=== PATIENT | female | born 1935 | race Caucasian/White ===

== ENCOUNTER 2016-07-06 16:15 | Emergency (ER) | payer MEDICARE, BC ==
[~2016-07-06] VITALS: Ht 147.3 cm; Wt 61.0 kg
[~2016-07-06 16:15] MED LIST: ALLOPURINOL100 MG PO; AMITRIPTYLIN25 MG OR; ASPIRIN LOW DOS81 M2 PO; BABY ASPIRIN81 MG OR; BENAZEPRIL20 MG OR; CALCIUM500 MG/D OR; CYANOCOBALAM1000 MCG IJ; ESCITALOPRAM OX10 MG PO; FLEXERIL PO; GABAPENTIN300 MG PO; INDERAL 20MG TA20 MG PO; ISOSORB MONO30 MG PO; ISOSORB MONO60 M1 OR; ISOSORB MONO60 M1 PO; LASIX 40 MG40 MG/TAB; LASIX 40 MG40 MG/TAB PO; LEVAQUIN750 MG OR; LISINOPRIL10 MG PO; LORAZEPAM0.5 MG PO; METO50TA52 OR; NITROGLYCER0.4 MG SL; NORCO1 TA1 PO; PAROXETIN ER12.5 MG PO; PLAVIX75 MG PO; PRAMIPEXOLE0.125 M1 PO; RANEXA PO; ROBITUSS12 OR; SIMVASTATIN20 MG PO; TRIAM/HCTZ1 CAP OR; ULTRAM50 M1 PO; VENTOLIN HFA IN; ZITHROMAX250 MG PO; [UNRECOGNIZED DRUG - OTHER]; [UNRECOGNIZED DRUG - REMARK]; [UNRECOGNIZED DRUG - REMARK]; iron
[2016-07-06 17:13] LABS: HEMATOCRIT 33.3 % (37.0-47.0); HEMOGLOBIN 11.1 g/dl (12.0-16.0); IMMATURE GRANULOCYTES 0.2 % (0.0-1.0); MEAN CELL VOLUME 93.8 fL CALC (80.0-100.0); MEAN CORPUSCULAR HGB 31.3 pG CALC (26.0-32.0); MEAN CORPUSCULAR HGB CONC 33.3 g/L CALC (32.0-36.0); NEUT# 3.7 thou/uL (2.00-7.15); RED BLOOD COUNT 3.55 mill/uL (4.20-5.60); RED CELL DISTRI WIDTH 15.1 % (11.5-15.5)
[2016-07-06 17:28] LABS: ALBUMIN 4.1 g/dL (3.2-5.0); BILIRUBIN, TOTAL 0.9 mg/dL (0.0-1.4); CALCIUM 9.4 mg/dL (8.4-10.2); CREATININE 1.6 mg/dL (0.5-1.0); POTASSIUM 4.1 mmol/l (3.5-5.1); TOTAL PROTEIN 7.5 g/dL (6.3-8.2)
[2016-07-06 18:17] VITALS: BP 142/65
== END 2016-07-06 18:29 | disposition home or self-care (01) ==
LOC: ED 16:15
PROVIDERS: Emergency Medicine
DX: S30.0XXA Contusion of lower back and pelvis, initial encounter (principal); I10 Essential (primary) hypertension; E78.00 Pure hypercholesterolemia, unspecified; R42 Dizziness and giddiness; M48.00 Spinal stenosis, site unspecified; I25.2 Old myocardial infarction; R51 Headache; R11.0 Nausea; R94.31 Abnormal electrocardiogram [ECG] [EKG]; W19.XXXA Unspecified fall, initial encounter; Z95.1 Presence of aortocoronary bypass graft